=== PATIENT | female | born 1950 | race Caucasian/White ===

== ENCOUNTER 2018-01-08 06:10 | Day surgery (SDC) | payer MEDICARE, OTHER ==
[2018-01-01 15:57] VITALS: BMI 31.8
[~2018-01-08 06:10] MED LIST: DEXAMETHASONE SOD PHOSPHATE 10 MG/ML 1 ML VIAL IV ONE; MIDAZOLAM 2 MG/2 ML VIAL IV PRN; ONDANSETRON 4 MG/2 ML VIAL IVP ONE; SCOPOLAMINE 1.5MG/72HR PATCH TRANSDERM ONE; ceFAZolin IN SWFI 2 GM/20 ML SYRINGE IVP ONE; fentaNYL (PF) 50 MCG/ML 2 ML AMP IV PRN
[2018-01-08] MEDS ORDERED: LIDOCAINE 1% 20 ML VIAL (10MG/ML) FOR IV START INTRADERMA ONE (07:00)
[2018-01-08] MEDS: LACTATED RINGERS 1,000 ML IV SCH ×3 (07:10→20:22)
[2018-01-08 07:11] LABS: Glucose,Whole Blood 196 mg/dL (75-99)
[2018-01-08 07:27] LABS: Potassium 4.3 mmol/L (3.5-5.1)
[2018-01-08 07:56] LABS: Basophils # (A) 0.1 k/uL (0-0.2); Basophils % (A) 1 %; Eosinophils # (A) 0.2 k/uL (0-0.7); Eosinophils % (A) 4 %; HCT 39.6 % (34.0-46.0); HGB 13.5 gm/dL (11.4-16.0); Lymphocytes # (A) 1.8 k/uL (1.0-4.8); Lymphocytes % (A) 33 %; MCH 30.4 pg (25.0-35.0); MCV 89.2 fL (80.0-100.0); Monocytes # (A) 0.2 k/uL (0-1.0); Monocytes % (A) 4 %; Neutrophils % (A) 55 %; Platelet Count 243 k/uL (150-450); RBC 4.44 m/uL (3.80-5.40); RDW 12.8 % (11.5-15.5); WBC 5.4 k/uL (3.8-10.6)
[2018-01-08] MEDS ORDERED: NEOSTIGMINE 1 MG/ML 10 ML VIAL ONE (08:09)
[2018-01-08] MEDS ORDERED: GLYCOPYRROLATE 0.2 MG/ML 2 ML VIAL ONE (08:09)
[2018-01-08] MEDS ORDERED: PHENYLEPHRINE-0.9% NACL SYG 1 MG/10 ML SYRINGE ONE (08:09)
[2018-01-08] MEDS ORDERED: PROPOFOL 10 MG/ML 20 ML VIAL IV ONE (08:09)
[2018-01-08] MEDS ORDERED: LIDOCAINE 1% INJ 10MG/ML (20 ML MDV) ONE (08:09)
[2018-01-08] MEDS ORDERED: ROCURONIUM BROMIDE 10 MG/ML 10 ML VIAL IV ONE (08:09)
[2018-01-08] MEDS ORDERED: SUCCINYLCHOLINE CHLORIDE 100 MG/5 ML SYR IV ONE (08:09)
[2018-01-08] MEDS ORDERED: MIDAZOLAM 2 MG/2 ML VIAL ONE (08:09)
[2018-01-08] MEDS ORDERED: fentaNYL (PF) 50 MCG/ML 2 ML AMP ONE (08:09)
[2018-01-08] MEDS ORDERED: methylPREDNISolone ACETATE 80 MG/ML 1 ML VIAL INTRAARTIC ONE (08:24)
[2018-01-08] MEDS ORDERED: ceFAZolin 1,000 MG in SODIUM CHLORIDE 0.9% 1,000 ML IRRIGATION ONE (09:22)
[2018-01-08] MEDS ORDERED: SENNOSIDES-DOCUSATE SODIUM 1 EACH TAB PO PRN (09:48)
[2018-01-08] MEDS ORDERED: TEMAZEPAM 15 MG CAP PO PRN (09:48)
[2018-01-08] MEDS ORDERED: ONDANSETRON 4 MG/2 ML VIAL IVP PRN (09:48)
[2018-01-08] MEDS ORDERED: HYDROcodone/APAP 5-325MG 1 EACH TAB PO PRN (09:48)
[2018-01-08] MEDS ORDERED: HYDROmorphone 1 MG/ML 1 ML SYRINGE IVP PRN ×2 (09:48)
[2018-01-08] MEDS ORDERED: INSULIN ASPART 100 UNIT/ML 1 ML 10 ML VIAL SQ ONE (09:59)
[2018-01-08 10:10] LABS: Glucose,Whole Blood 218 mg/dL (75-99)
--- NOTE | 2018-01-08 10:22 | P.ONQ ---
Anesthesiology Proc Note - PNB - Peripheral Nerve Block Performed Left Interscalene Single Time Out Performed: Yes Procedure Start Time: 07:56 Indication: Acute Post-Operative Pain, Analgesia Sedation Type: Sedate with meaningful contact maintained Preparation: Sterile Prep Position: Supine Catheter: None Needle Types: Other (see comment) (Domonique) Needle Size: 50mm (2") Needle Gauge: 21 Technique: Ultrasound Injectate: 0.5% Ropivacaine (see comment for volume) (25 cc) Blood Aspirated: No Pain Paresthesia on Injection Noted: No Resistance on Injection: Normal Events: Uneventful and Well Tolerated
[2018-01-08 11:21] LABS: Glucose,Whole Blood 244 mg/dL (75-99)
[2018-01-08] MEDS: INSULIN ASPART 100 UNIT/ML 1 ML 10 ML VIAL SQ SCH ×3 (11:46→20:21)
[2018-01-08] MEDS ORDERED: BENZOCAINE/MENTHOL LOZENG 1 EACH LOZENGE MUCOUS MEM PRN (14:04)
[2018-01-08] MEDS: ceFAZolin IN SWFI 2 GM/20 ML SYRINGE IVP SCH (15:43)
[2018-01-08 17:01] LABS: Glucose,Whole Blood 303 mg/dL (75-99)
[2018-01-08 17:36] LABS: Hemoglobin A1C 7.3 % (4.0-6.0)
--- NOTE | 2018-01-08 17:41 | CONS ---
CONSULTATION DATE OF CONSULTATION: 01/08/2018 REASON FOR CONSULTATION: Medical management requested by Dr. Luna. CONSULTATIONS: A pleasant 67-year-old patient of Dr. Tien Jane whose chronic stable medical conditions include diabetes, GERD, hypertension, osteoarthritis, hepatic steatosis, diabetic peripheral neuropathy. The patient has undergone left shoulder surgery, is still numb. Left arm is in a sling and support. Very slight nausea. No chest pain. Denies any cardiac history. Sitting up on the bed. Pain is controlled. REVIEW OF SYSTEMS: CONSTITUTIONAL: None. HEENT: None. RESPIRATORY: None. CARDIOVASCULAR: None. GASTROINTESTINAL: Heartburn. GENITOURINARY: None. MUSCULOSKELETAL: Arthritic pain in many joints. DERMATOLOGICAL: None. HEMATOLOGIC: None. LYMPHATIC: None. PSYCHIATRY: None. NEUROLOGICAL: Numbness, tingling in the hands and feet. PAST MEDICAL HISTORY: Diabetes mellitus type 2, GERD, hypertension, osteoarthritis, hepatic steatosis, diabetic peripheral neuropathy, obesity, thoracic aortic aneurysm, left rotator cuff tear, varicose veins. PAST SURGICAL HISTORY: Cholecystectomy, hysterectomy, artificial left eye implant. SOCIAL HISTORY: Does not smoke or drink alcohol. Lives alone. FAMILY HISTORY: Myocardial infarction, lung cancer. HOME MEDICATIONS: 1. Glucophage 1000 mg b.i.d. 2. Glucotrol 20 mg b.i.d. with meals. 3. Naproxen 500 mg p.o. b.i.d. p.r.n. 4. Lopressor 25 mg p.o. daily. 5. Prinivil 20 mg p.o. b.i.d. 6. Hydrochlorothiazide 25 mg q.48 hours. 7. Aspirin 81 mg q.h.s. ALLERGIES: CODEINE. EXAMINATION: Temperature 98.1, pulse 91, respirations 16, blood pressure 120/76, pulse 91% on room air. GENERAL APPEARANCE: Well-built, BMI 31.8, sitting up comfortable. EYES: Pupils equal. Conjunctivae normal. HEENT: External appearance of ears and nose normal. Oral cavity normal. NECK: JVD not raised. Mass not palpable. RESPIRATORY: Effort normal. LUNGS: Clear. CARDIOVASCULAR: First and second sounds normal. No edema. ABDOMEN: Soft, nontender. Liver and spleen not palpable. LYMPHATIC: No lymph node palpable in neck or axillae. PSYCHIATRY: Alert and oriented x3. Mood and affect normal. NEUROLOGICAL: Pupils equal. Cranial nerves grossly intact. Power and sensation grossly intact. EXTREMITIES: Left arm in a support. INVESTIGATIONS: White count 5.4, hemoglobin 13.5. Potassium 4.3. Accu-Cheks are noted. ASSESSMENT: 1. Left shoulder surgery, including acromioplasty, excision distal end of clavicle and rotator cuff repair, left shoulder and cortisone injection. 2. Diabetes mellitus type 2 on oral hypoglycemic. 3. Gastroesophageal reflux disease. 4. Essential hypertension. 5. Primary osteoarthritis. 6. Hepatic steatosis. 7. Diabetic peripheral neuropathy. 8. Chronic aortic aneurysm, size unknown. 9. Obesity; BMI 31.8. PLAN: Home medications will be resumed. Accu-Cheks will be done. Care was discussed with the patient. Pain control in place. Care was discussed with the patient. Thank you, Dr. Luna. RANDAL / CARO: [id number] /
[2018-01-08] MEDS: metFORMIN 500 MG TAB PO SCH (17:47)
[2018-01-08] MEDS: glipiZIDE 10 MG TAB PO SCH (17:47)
[2018-01-08] MEDS: LORATADINE 10 MG TAB PO PRN (19:37)
[2018-01-08 19:53] LABS: Glucose,Whole Blood 286 mg/dL (75-99)
[2018-01-08] MEDS: LISINOPRIL 20 MG TAB PO SCH (20:22)
[2018-01-08] MEDS ORDERED: LORATADINE 10 MG TAB PO SCH (21:00)
[2018-01-09] MEDS: ceFAZolin IN SWFI 2 GM/20 ML SYRINGE IVP SCH (00:19)
[2018-01-09] MEDS: HYDROcodone/APAP 5-325MG 1 EACH TAB PO PRN ×2 (01:46→08:20)
[2018-01-09] MEDS: HYDROmorphone 1 MG/ML 1 ML SYRINGE IVP PRN ×4 (02:31→17:15)
[2018-01-09 06:56] LABS: Glucose,Whole Blood 249 mg/dL (75-99)
[2018-01-09] MEDS: LACTATED RINGERS 1,000 ML IV SCH ×4 (08:17→17:14)
[2018-01-09] MEDS: hydrOXYzine PAMOATE 25 MG CAP PO PRN ×3 (08:21→21:18)
[2018-01-09] MEDS ORDERED: HYDROcodone/APAP 7.5-325MG 1 EACH TAB PO PRN (08:38)
--- NOTE | 2018-01-09 08:48 | P.DS ---
Providers Expected date of discharge: 01/09/18 Attending physician: Benjamin Luna Consults: 01/08/18 09:50 Consult Physician Routine Consulting Provider: Del Irby Consult Reason/Comments: medical management Do you want consulting provider notified?: Yes Primary care physician: Tien Jane - Discharge Diagnosis(es) (1) Status post rotator cuff repair Current Visit: Yes Status: Acute (2) Rotator cuff tear arthropathy of left shoulder Current Visit: Yes Status: Acute Hospital Course: This is a 67-year-old female with known history of chronic impingement syndrome of the left shoulder. The patient presented to the orthopedic office for evaluation. After discussion and consideration patient elects to proceed with a rotator cuff repair. The patient is seen preoperatively by her primary care physician and cleared for surgery. Patient is admitted to observation at [facility] on 01/08/2018 for left shoulder rotator cuff repair with distal clavicle excision and acromioplasty. The procedures performed without complication or sequelae. The patient is doing well postoperatively. Labs and vital signs are stable on day of discharge. However, her pain is very severe and her pain medications have been adjusted. On day of discharge patient's shoulder incision is healing well. There is minimal erythema. There is no drainage noted at this time. There is minimal soft tissue swelling to the right upper extremity. Patient has full hand, wrist , and elbow motion without difficulty or pain. Neurovascular status to the left upper extremity is intact. Patient is discharged to home in stable condition. Patient Condition at Discharge: Stable Plan - Discharge Summary Discharge Rx Participant: No New Discharge Prescriptions: New Cephalexin [Keflex] 500 mg PO Q8HR #15 cap Hydrocodone/Acetaminophen [[place] 7.5-325] 1 - 2 tab PO Q4-6H PRN #60 tab PRN Reason: Pain hydrOXYzine PAMOATE [Vistaril] 25 mg PO TID PRN #60 cap PRN Reason: Pain Sennosides-Docusate Sodium [Senokot-S] 2 tab PO DAILY #30 tablet No Action metFORMIN HCL [Glucophage] 1,000 mg PO BID glipiZIDE [Glucotrol] 20 mg PO BID-W/MEALS Lisinopril [Prinivil] 20 mg PO BID Aspirin 81 mg PO HS Naproxen [Naprosyn] 500 mg PO BID PRN PRN Reason: Pain Metoprolol Tartrate [Lopressor] 25 mg PO DAILY Hydrochlorothiazide 25 mg PO Q48H Discharge Medication List Aspirin 81 mg PO HS 07/08/14 [History] Lisinopril [Prinivil] 20 mg PO BID 07/08/14 [History] glipiZIDE [Glucotrol] 20 mg PO BID-W/MEALS 07/08/14 [History] metFORMIN HCL [Glucophage] 1,000 mg PO BID 07/08/14 [History] Hydrochlorothiazide 25 mg PO Q48H 01/01/18 [History] Metoprolol Tartrate [Lopressor] 25 mg PO DAILY 01/01/18 [History] Naproxen [Naprosyn] 500 mg PO BID PRN 01/01/18 [History] Cephalexin [Keflex] 500 mg PO Q8HR #15 cap 01/09/18 [Rx] Hydrocodone/Acetaminophen [[place] 7.5-325] 1 - 2 tab PO Q4-6H PRN #60 tab [Rx] Sennosides-Docusate Sodium [Senokot-S] 2 tab PO DAILY #30 tablet 01/09/18 [Rx] hydrOXYzine PAMOATE [Vistaril] 25 mg PO TID PRN #60 cap 01/09/18 [Rx] Follow up Appointment(s)/Referral(s): Benjamin Luna DO [Doctor of Osteopathic Medicine] - 2 Weeks Activity/Diet/Wound Care/Special Instructions: Keep incision clean and dry Change dressing daily May shower in 3 days if no drainage from incision Keep arm sling/abductor pillow in place except when bathing Follow up with Dr. Luna in 2 weeks. Call [facility] with any questions or concerns. [phone] Discharge Disposition: HOME SELF-CARE
[2018-01-09] MEDS: metFORMIN 500 MG TAB PO SCH ×2 (09:49→18:37)
[2018-01-09] MEDS: LISINOPRIL 20 MG TAB PO SCH ×2 (09:49→21:18)
[2018-01-09] MEDS: METOPROLOL TARTRATE 25 MG TAB PO SCH (09:49)
[2018-01-09] MEDS: glipiZIDE 10 MG TAB PO SCH ×2 (09:49→17:24)
[2018-01-09] MEDS: INSULIN ASPART 100 UNIT/ML 1 ML 10 ML VIAL SQ SCH ×4 (09:50→21:17)
[2018-01-09 11:45] LABS: Glucose,Whole Blood 261 mg/dL (75-99)
[2018-01-09] MEDS ORDERED: HYDROCHLOROTHIAZIDE 25 MG TAB PO SCH (12:00)
--- NOTE | 2018-01-09 12:54 | OP ---
OPERATIVE REPORT DATE OF SERVICE: 01/08/2018 SURGEON: Dr Benjamin Luna DO COMMUNICATIONS DESIGNER: SANDRO Domingo. PREOPERATIVE DIAGNOSIS: Torn rotator cuff with chronic impingement. POSTOPERATIVE DIAGNOSIS: Complete rupture of the supraspinatus and infraspinatus tendons of the left shoulder with chronic impingement. PROCEDURE PERFORMED: Resection distal left clavicle, decompression and acromioplasty, and rotator cuff repair utilizing Arthrex bioabsorbable anchor. PROCEDURE: Patient was taken to the operative suite and placed in supine position. General inhalation anesthesia was performed by Department of Anesthesiology. The patient is then positioned in a beach chair position, padded and secured on the surgical table. The Betadine prep was carried out over the left shoulder. The sterile drapes were applied in the usual manner. A minimally invasive anterolateral incision was performed. Sharp dissection was carried out through the subcutaneous tissues. The acromioclavicular ligament is identified and dissected. The distal 1 cm of the clavicle is was excised with the bone saw. The acromioclavicular ligament was identified. The inferolateral decompression acromioplasty was performed. The width of the acromion was shaped with bone saw and bone rasp. There is a large tear of the supra and infraspinatus tendons of the left shoulder. One arthrex suture anchor was secured into the bone in the usual manner. The repair was carried out with one suture in running fashion. Following complete closure of the cuff tear, the area is irrigated with antibiotic solution. Deltoid was then reviewed and reapproximated back into the acromion with #1 Ethibond suture. #1 fine Quill suture was then utilized in approximation of the fascia. Subcutaneous tissue approximated with 2-0 Vicryl suture and 3-0 Quill suture in a subcuticular fashion and the incision was sealed with Dermabond. Sterile dressing is applied. Patient was placed in the abductor pillow splint and transferred to the recovery room in satisfactory postoperative condition. GROSS PATHOLOGY: There was a chronic tear of the left rotator cuff indwelling suture in the infraspinatus tendon. The tendon tear was reasonably palpable and the greater tuberosity repaired with the bioabsorbable anchor. MMODL / IJN: [id number] / [facility] HEALTHDebby
[2018-01-09] MEDS: HYDROcodone/APAP 7.5-325MG 1 EACH TAB PO PRN ×2 (14:07→21:19)
[2018-01-09] MEDS: LORATADINE 10 MG TAB PO PRN (17:15)
[2018-01-09 17:18] LABS: Glucose,Whole Blood 205 mg/dL (75-99)
--- NOTE | 2018-01-09 18:12 | PN ---
PROGRESS NOTE DATE OF SERVICE: 01/09/2018 PRESENTING COMPLAINT: Left shoulder surgery. INTERVAL HISTORY: Patient is status post left shoulder surgery; has significant pain. Did tolerate some diet. No nausea or vomiting. Pain medication is being adjusted by Orthopedics. No chest pain or shortness of breath. REVIEW OF SYSTEMS: Done for constitutional, cardiovascular, GI, pulmonary, musculoskeletal; relevant findings as above. CURRENT MEDICATIONS: Reviewed. PHYSICAL EXAMINATION: Temperature 98.1, pulse 83, respiration 16, blood pressure 145/83, pulse ox 92% on room air. GENERAL APPEARANCE: Lying in bed. EYES: Pupils equal. Conjunctivae normal. HEENT: External appearance of nose and ears normal. Oral cavity normal. NECK: JVD not raised. Mass not palpable. RESPIRATORY: Effort normal. Lungs are clear. CARDIOVASCULAR: First and second sounds normal. No edema. ABDOMEN: Soft, non-tender. Liver and spleen not palpable. PSYCHIATRY: Alert and oriented x3. Mood and affect normal. EXTREMITIES: Left arm in a sling and support. INVESTIGATION: Accu-Cheks are noted. ASSESSMENT: 1. Left shoulder surgery with some significant postoperative pain. 2. Diabetes mellitus, type 2, uncontrolled from hyperglycemia. 3. Gastroesophageal reflux disease. 4. Essential hypertension. 5. Primary osteoarthritis. 6. Hepatic steatosis. 7. Diabetic peripheral neuropathy. 8. Chronic aortic aneurysm, size unknown. 9. Obesity; body mass index 31.8. PLAN: Continue current medication and treatment plan. Care was discussed with the patient. MMODL / IJN: [id number] /
[2018-01-09 20:16] LABS: Glucose,Whole Blood 309 mg/dL (75-99)
[2018-01-10] MEDS: HYDROcodone/APAP 7.5-325MG 1 EACH TAB PO PRN ×2 (03:18→09:11)
[2018-01-10] MEDS: hydrOXYzine PAMOATE 25 MG CAP PO PRN ×2 (03:19→09:11)
[2018-01-10] MEDS: LACTATED RINGERS 1,000 ML IV SCH (03:23)
[2018-01-10 06:51] LABS: Glucose,Whole Blood 199 mg/dL (75-99)
[2018-01-10] MEDS: INSULIN ASPART 100 UNIT/ML 1 ML 10 ML VIAL SQ SCH (07:40)
[2018-01-10] MEDS: metFORMIN 500 MG TAB PO SCH (07:40)
[2018-01-10 08:17] VITALS: BP 150/85; PULSE 109; RESP 18; TEMP 98.1
[2018-01-10] MEDS: glipiZIDE 10 MG TAB PO SCH (08:21)
[2018-01-10] MEDS: LISINOPRIL 20 MG TAB PO SCH (08:22)
[2018-01-10] MEDS: METOPROLOL TARTRATE 25 MG TAB PO SCH (08:22)
== END 2018-01-10 11:25 | disposition home or self-care (01) ==
LOC: OR 06:10 → 3SUR 09:32 → OR 01-10 11:25
PROVIDERS: ATTEND Orthopaedic Surgery
DX: M75.122 Complete rotator cuff tear or rupture of left shoulder, not specified as traumatic (principal); E11.42 Type 2 diabetes mellitus with diabetic polyneuropathy; E11.65 Type 2 diabetes mellitus with hyperglycemia; E66.9 Obesity, unspecified; K76.0 Fatty (change of) liver, not elsewhere classified; M75.42 Impingement syndrome of left shoulder; M19.90 Unspecified osteoarthritis, unspecified site; I10 Essential (primary) hypertension; I71.2 Thoracic aortic aneurysm, without rupture; M65.811 Other synovitis and tenosynovitis, right shoulder; M75.91 Shoulder lesion, unspecified, right shoulder; G89.29 Other chronic pain; K21.9 Gastro-esophageal reflux disease without esophagitis; Z82.49 Family history of ischemic heart disease and other diseases of the circulatory system; Z68.31 Body mass index [BMI] 31.0-31.9, adult; Z79.84 Long term (current) use of oral hypoglycemic drugs; Z79.82 Long term (current) use of aspirin; Z79.899 Other long term (current) drug therapy; Z83.3 Family history of diabetes mellitus; Z90.710 Acquired absence of both cervix and uterus; Z88.5 Allergy status to narcotic agent
CPT/HCPCS: 23412; 23130; 23140; 64415; 80051; 85025; 83036; C1713; J2250; J1040; J1100; J2710; J2405; J0690 ×3; J2001; J3010; J1170 ×2; J2370; J0330; J2704